=== PATIENT | female | born 1975 | race African-American/Black ===

== ENCOUNTER 2022-10-20 00:22 | Day surgery (SDC) | payer OTHER, SELFPAY ==
[2022-10-14 13:48] VITALS: BMI 27.6
[2022-10-20 09:09] VITALS: BP 124/78; PULSE 69; RESP 16; TEMP 36.2; O2SAT 100
[2022-10-20] MEDS: LACTATED RINGERS 1,000 ML 150 ML IV CONT (09:09)
--- NOTE | 2022-10-20 09:30 | PM.HPGS ---
History of Present Illness History of Present Illness Consent: Risks, benefits, and alternatives have been discussed and questions answered. Patient agrees to proceed with procedure. Chief complaint: neoplasm screening Narrative: Sunday Fry is a 47 year old female here for first screening colonoscopy Review of Systems Constitutional: Constitutional: Denies headache(s) and Denies weakness Eyes: Eyes: Denies blurry vision ENT: Reports Normal hearing present, Denies headache(s) and Denies neck pain Cardiovascular: Cardiovascular: Denies chest pain and Denies dyspnea Respiratory: Respiratory: Denies dyspnea Gastrointestinal: Gastrointestinal: Reports no additional gastrointestinal complaints Genitourinary: Genitourinary: Denies dysuria Musculoskeletal: Musculoskeletal: Denies neck pain Integumentary/Breasts: Skin/Breast: Denies dry skin Neurologic: Reports Normal hearing present, Denies headache(s) and Denies weakness Psychiatric: Psychiatric: Denies anxiety Endocrine: Endocrine: Denies change in body appearance Hematologic/Lymphatic: Hematologic/Lymphatic: Denies easy bleeding Allergic/Immunologic: Allergic/Immunologic: Denies urticaria PMFSH Past Medical History Medical History (Updated 10/20/22 @ 09:31 by Jesus Puga MD) Colon cancer screening Social History Social History Smoking status: Never smoker Alcohol intake: current Drinks per week: 1 Alcohol use details: wine Substance use type: does not use Living arrangements: with family Spiritual care concerns: No Meds Home Medications and Allergies Home Medications Medication Instructions Recorded Confirmed Type Lactobacillus 1 cap PO DAILY 10/14/22 10/14/22 History acidophilus-Bifidobac.animalis 2.5 billion cell capsule (Daily Probiotic) Allergies Allergy/AdvReac Type Severity Reaction Status Date / Time No Known Allergies Allergy Verified 10/20/22 08:50 Vital Signs Vital Signs - 24 hr 10/20/22 09:09 Temperature 97.1 F L Pulse Rate 69 Respiratory Rate 16 Blood Pressure 124/78 Pulse Oximetry 100 Oxygen Delivery Room Air Exam Const: General: comfortable and no acute distress HENMT: Face/Nose/Sinus: Normal nares present Eyes: General: appearance normal, both eyes and all related structures Neck: Neck: no JVD Resp: Auscultation: clear to auscultation bilaterally Cardio: Rate: regular rate Rhythm: regular rhythm GI: Inspection: non-distended GI Palp: Yes Soft to palpation Skin: General skin exam: normal color Neuro: General: gait normal Speech: normal speech Extrem: General: normal to inspection Psych: Mental Status: mental status grossly normal Assessment and Plan Assessment and plan (1) Colon cancer screening: Code(s): Z12.11 - Encounter for screening for malignant neoplasm of colon Status: Acute Assessment and Plan: colonoscopy
--- NOTE | 2022-10-20 09:36 | WPDANESEPPF ---
Anes - Initial Pre Proc Eval Procedure: Operation Date: 10/20/22 10:15 Proposed Procedures p Screening Colonoscopy - Jesus Puga MD Date/Time: 10/20/22 09:36 Surgeon: Jesus Puga MD Pre Op Diagnosis: neoplasm screening Patient Data Age: 47 Gender: F Height: 1.63 m Weight: 73.4 kg Last Vital Signs Temp 97.1 F L 10/20/22 09:09 Pulse 69 10/20/22 09:09 Resp 16 10/20/22 09:09 BP 124/78 10/20/22 09:09 Pulse Ox 100 10/20/22 09:09 O2 Del Method Room Air 10/20/22 09:09 Allergies Allergy/AdvReac Type Severity Reaction Status Date / Time No Known Allergies Allergy Verified 10/20/22 08:50 Home Medications Medication Instructions Recorded Confirmed Type Lactobacillus 1 cap PO DAILY 10/14/22 10/14/22 History acidophilus-Bifidobac.animalis 2.5 billion cell capsule (Daily Probiotic) Patient hx anesthesia problems: none Family hx anesthesia problems: none Results Review: All pre-operative results and documents have been reviewed as part of the pre-operative evaluation. [facility] Past Medical History Medical History (Updated 10/20/22 @ 09:31 by Jesus Puga MD) Colon cancer screening Social History Social History Smoking status: Never smoker Alcohol intake: current Drinks per week: 1 Alcohol use details: wine Substance use type: does not use Living arrangements: with family Spiritual care concerns: No Anes - Eval Final PreProcedure Day of Procedure 10/20/22 09:36 Patient weight: normal Heart: regular rate and rhythm Lungs: clear to auscultation Airway: Mallampati scale class II Neurological: alert and oriented Last oral intake: >/= 8 hours ASA classification: II Emergent: no Anesthetic plan: proceed Anesthesia type and monitoring: general GIVS and standard monitoring Results Review: All pre-operative results and documents have been reviewed as part of the pre-operative evaluation. Informed Consent: The patient's anesthetic plan and its attendant risks and benefits were discussed with the patient/family/POA. Questions were solicited and answers provided to the satisfaction of the patient/family/POA.
[2022-10-20 09:51] VITALS: BP 122/77; PULSE 75; RESP 17; O2SAT 100
[2022-10-20 10:01] VITALS: BP 132/88; PULSE 79; RESP 20; O2SAT 100
[2022-10-20 10:11] VITALS: BP 146/97; PULSE 65; RESP 15; O2SAT 97
== END 2022-10-20 10:27 | disposition home or self-care (01) ==
PROVIDERS: PCP Nurse Practitioner Family; Visit Provider Internal Medicine Gastroenterology
PROC: 0DJD8ZZ Inspection of Lower Intestinal Tract, Via Natural or Artificial Opening Endoscopic (ICD-10-PCS; CPT 45378; principal; 2022-10-20 10:15)
DX: Z12.11 Encounter for screening for malignant neoplasm of colon (principal)
CPT/HCPCS: 45378; J2704; J7120